=== PATIENT | female | born 1945 | race Caucasian/White ===

== ENCOUNTER 2018-05-27 13:04 | Emergency (ER) | payer MEDICARE ==
[~2018-05-27] VITALS: Ht 154.9 cm; Wt 61.0 kg
[~2018-05-27 13:04] MED LIST: ASPI-529 PO; CALC-627 PO; CYAN10006 IM; ESTR1TAB19 PO; LEVO15TA5 PO; LOSA25TA96 PO; MULT-1179 PO; SYN0.1T PO; ZOC5T PO
[2018-05-27 13:26] VITALS: BP 190/77
[2018-05-27] MEDS ORDERED: triamcinolone acetonide 40mg/ml inj IM ONE (14:05)
[2018-05-28] MEDS ORDERED: PRED10TA PO (04:54)
== END 2018-05-27 14:24 | disposition home or self-care (01) ==
LOC: ER 13:04
DX: L25.9 Unspecified contact dermatitis, unspecified cause (principal); E78.00 Pure hypercholesterolemia, unspecified; I10 Essential (primary) hypertension; Z98.890 Other specified postprocedural states; Z88.8 Allergy status to other drugs, medicaments and biological substances; Z79.82 Long term (current) use of aspirin; Z79.899 Other long term (current) drug therapy
CPT/HCPCS: 96372; 99283; J3301

== ENCOUNTER 2018-05-28 04:28 | Emergency (ER) | payer MEDICARE ==
[~2018-05-28] VITALS: Ht 154.9 cm; Wt 63.0 kg
[2018-05-28] MEDS ORDERED: PRED10TA PO (04:54)
[2018-05-28] MEDS ORDERED: methylPREDNISolone sod succ 125mg/2ml vial IV ONE (04:55)
[2018-05-28] MEDS ORDERED: diphenhydrAMINE 50 mg/ml inj IV ONE (04:55)
[2018-05-28] MEDS ORDERED: famotidine/PF 10 mg/ml inj IV ONE (04:55)
[2018-05-28 05:43] VITALS: BP 157/67
== END 2018-05-28 05:55 | disposition home or self-care (01) ==
LOC: ER 04:29
DX: T78.40XA Allergy, unspecified, initial encounter (principal); E78.00 Pure hypercholesterolemia, unspecified; I10 Essential (primary) hypertension; Z98.890 Other specified postprocedural states; Z88.8 Allergy status to other drugs, medicaments and biological substances; Z79.82 Long term (current) use of aspirin; Z79.899 Other long term (current) drug therapy; X58.XXXA Exposure to other specified factors, initial encounter
CPT/HCPCS: 96374; 96375; 99284; J1200; J2930; J3490

== ENCOUNTER 2018-10-23 22:29 | Inpatient (IN) | payer MEDICARE ==
[~2018-10-23] VITALS: Ht 154.9 cm; Wt 63.9 kg
[~2018-10-23 22:29] MED LIST changes: +PRED10TA PO
[2018-10-23 22:52] LABS: CLARITY,URINE SLIGHTLY CLOUDY (Clear); COLOR,URINE YELLOW (Yellow); GLUCOSE, URINE NEGATIVE (Neg); KETONES,URINE 15 mg/dl (Neg); LEUKOCYTE ESTERASE ,URINE MODERATE (Neg); NITRITES, URINE NEGATIVE (Neg); OCCULT BLOOD,URINE MODERATE (Neg); PROTEIN,URINE 100 mg/dl (Neg); UROBILINOGEN,URINE 0.2 E.U/dL (0.2-1.0)
[2018-10-23 22:56] LABS: UA COLLECTION TYPE VOIDED
[2018-10-23 22:57] LABS: BACTERIA,URINE FEW /HPF (Neg); RBC,URINE 0-2 /HPF (0-2); SQUAMOUS EPITHELIAL CELL,UR FEW /LPF (FEW); WBC CLUMPS,URINE FEW /HPF (NEGATIVE); WBC,URINE 50-100 /HPF (0-4)
[2018-10-23] MEDS ORDERED: normal saline 1000ML IV soln IVB ONE (23:10)
[2018-10-23] MEDS ORDERED: ondansetron/PF 4mg/2ml inj IV ONE (23:10)
[2018-10-23 23:35] LABS: BASOPHILS % (AUTO) 0 % (0-1); EOSINOPHILS % (AUTO) 0 % (0-6); HEMATOCRIT 31.7 % (35.0-45.0); HEMOGLOBIN 10.8 g/dl (12.0-16.0); LYMPHOCYTES # (AUTO) 0.7 X10'3 (1.1-4.8); LYMPHOCYTES % (AUTO) 6.6 % (21-51); MEAN CORPUSCULAR HEMOGLOBIN 31.1 PG (27.0-31.0); MEAN CORPUSCULAR HGB CONC 34.2 % (33.0-36.5); MEAN CORPUSCULAR VOLUME 91.1 FL (78-98); MEAN PLATELET VOLUME 6.7 FL (7.4-10.4); MONOCYTES # (AUTO) 1.1 X10'3 (0-0.9); MONOCYTES % (AUTO) 10.5 % (2-12); NEUTROPHILS # (AUTO) 8.5 X10'3 (1.8-7.7); NEUTROPHILS % (AUTO) 82.9 % (42-75); PLATELET COUNT 167 X10'3 (140-440); RED BLOOD COUNT 3.48 X10'6 (4.20-5.60); RED CELL DISTRIBUTION WIDTH 13.5 % (11.5-14.5); WHITE BLOOD COUNT 10.2 X10'3 (4.5-11.0)
[2018-10-23 23:55] LABS: ALANINE AMINOTRANSFERASE 51 U/L (12-78); ALBUMIN 2.6 G/DL (3.4-5.0); ALBUMIN/GLOBULIN RATIO 0.7 (1.1-1.5); ALKALINE PHOSPHATASE 119 IU/L (46-116); ANION GAP 9 (8-16); ASPARTATE AMINO TRANSFERASE 62 U/L (10-37); BILIRUBIN,TOTAL 0.8 MG/DL (0.1-1.0); BLOOD UREA NITROGEN 15 MG/DL (7-18); BUN/CREATININE RATIO 12.3 (6.6-38.0); CALCIUM 8.1 MG/DL (8.5-10.1); CHLORIDE 98 MMOL/L (99-107); CREATININE 1.22 MG/DL (0.40-0.90); GLUCOSE 109 MG/DL (70-104); SODIUM 134 MMOL/L (135-145); TOTAL CARBON DIOXIDE 27.2 MMOL/L (24-32); TOTAL PROTEIN 6.6 G/DL (6.4-8.2); eGFR 43 ML/MIN
[2018-10-23] MEDS ORDERED: HYDROcodone/acetaminophen 5mg/325mg tablet PO ONE (23:55)
[2018-10-23] MEDS ORDERED: CefTRIAXone/D5W-Rocephin 1gm 50 ML IV ONE (23:55)
[2018-10-23] MEDS ORDERED: ONDA4TAB9 SL (23:57)
[2018-10-23] MEDS ORDERED: TAM75C PO (23:57)
[2018-10-23] MEDS ORDERED: CEPH-572 PO (23:57)
[2018-10-23 23:58] LABS: POTASSIUM 2.9 MMOL/L (3.5-5.1)
[2018-10-23] MEDS ORDERED: potassium Cl 20 mEq SR tablet PO STA (23:59)
[2018-10-24] MEDS ORDERED: magnesium oxide 400mg tablet PO ONE (00:15)
[2018-10-24] MEDS ORDERED: POTA10TA36 PO (00:16)
[2018-10-24] MEDS ORDERED: MAGN250T11 PO (00:16)
[2018-10-24] MEDS ORDERED: acetaminophen 325mg tablet PO STA (00:17)
[2018-10-24 00:34] LABS: MAGNESIUM 1.2 MG/DL (1.5-2.4)
[2018-10-24] MEDS ORDERED: normal saline 1000ML IV soln IVB ONE (01:25)
[2018-10-24] MEDS ORDERED: magnesium 2GM in 50ml NS 50 ML IV ONE (01:30)
[2018-10-24] MEDS ORDERED: potassium 10mEq/100ml NS w/LIDOcaine (10mg/bag) IV ONE (01:30)
[2018-10-24] MEDS ORDERED: potassium Cl 20mEq in NS 1,000 ML IV SCH (03:07)
[2018-10-24] MEDS ORDERED: non-formulary drug (Magnesium Oxide (Magnesium) 250 MG) PO SCH (03:10)
[2018-10-24] MEDS ORDERED: mag hydrox/Alum hydrox/simeth 30ml oral suspension PO PRN (03:10)
[2018-10-24] MEDS ORDERED: ondansetron/PF 4mg/2ml inj IV PRN (03:10)
[2018-10-24] MEDS ORDERED: magnesium hydroxide 30ml (MOM) UD suspension PO PRN (03:10)
[2018-10-24 03:45] VITALS: BP 114/66
[2018-10-24 06:00] VITALS: BP 105/54
[2018-10-24 08:18] LABS: ALANINE AMINOTRANSFERASE 76 U/L (12-78); ALBUMIN 2.6 G/DL (3.4-5.0); ALBUMIN/GLOBULIN RATIO 0.6 (1.1-1.5); ALKALINE PHOSPHATASE 168 IU/L (46-116); ANION GAP 12 (8-16); ASPARTATE AMINO TRANSFERASE 108 U/L (10-37); BILIRUBIN,TOTAL 0.6 MG/DL (0.1-1.0); BLOOD UREA NITROGEN 13 MG/DL (7-18); BUN/CREATININE RATIO 10.9 (6.6-38.0); CALCIUM 7.9 MG/DL (8.5-10.1); CHLORIDE 101 MMOL/L (99-107); CREATININE 1.19 MG/DL (0.40-0.90); GLUCOSE 97 MG/DL (70-104); POTASSIUM 4.4 MMOL/L (3.5-5.1); SODIUM 136 MMOL/L (135-145); TOTAL CARBON DIOXIDE 22.9 MMOL/L (24-32); TOTAL PROTEIN 6.9 G/DL (6.4-8.2); eGFR 44 ML/MIN
[2018-10-24 08:20] LABS: BASOPHILS % (AUTO) 0.2 % (0-1); EOSINOPHILS # (AUTO) 0.1 X10'3 (0-0.9); HEMATOCRIT 33.2 % (35.0-45.0); HEMOGLOBIN 11.2 g/dl (12.0-16.0); LYMPHOCYTES # (AUTO) 1.4 X10'3 (1.1-4.8); LYMPHOCYTES % (AUTO) 11.8 % (21-51); MEAN CORPUSCULAR HEMOGLOBIN 31.4 PG (27.0-31.0); MEAN CORPUSCULAR HGB CONC 33.6 % (33.0-36.5); MEAN CORPUSCULAR VOLUME 93.3 FL (78-98); MEAN PLATELET VOLUME 7.8 FL (7.4-10.4); MONOCYTES # (AUTO) 0.8 X10'3 (0-0.9); MONOCYTES % (AUTO) 7.3 % (2-12); NEUTROPHILS # (AUTO) 9.2 X10'3 (1.8-7.7); NEUTROPHILS % (AUTO) 79.7 % (42-75); PLATELET COUNT 163 X10'3 (140-440); RED BLOOD COUNT 3.56 X10'6 (4.20-5.60); RED CELL DISTRIBUTION WIDTH 13.8 % (11.5-14.5); WHITE BLOOD COUNT 11.5 X10'3 (4.5-11.0)
[2018-10-24] MEDS: levoTHYROXINE 75mcg tablet PO SCH (09:00)
[2018-10-24] MEDS: multivitamins, therapeutics tablet PO SCH (09:00)
[2018-10-24] MEDS: losartan 50mg tablet PO SCH (09:00)
[2018-10-24] MEDS: potassium chloride 10mEq ER tablet PO SCH (09:00)
[2018-10-24] MEDS: aspirin 81mg tablet.DR PO SCH (09:00)
[2018-10-24] MEDS: heparin, porcine 5000 units/ml vial SQ SCH ×2 (09:04→20:08)
[2018-10-24] MEDS: ipratropium/albuterol 3ml nebule NEB PRN ×2 (09:50→23:36)
[2018-10-24 10:00] VITALS: BP 144/57
[2018-10-24 11:00] LABS: MAGNESIUM 1.5 MG/DL (1.5-2.4)
[2018-10-24 14:00] VITALS: BP_SYST 144; BP_SYST 152; BP_DIAS 57; BP_DIAS 59
[2018-10-24] MEDS: acetaminophen 325mg tablet PO PRN ×2 (14:54→23:11)
[2018-10-24] MEDS: estradiol 1mg tablet PO SCH (17:26)
[2018-10-24 18:00] VITALS: BP 132/60
[2018-10-24] MEDS: atorvastatin 20mg tablet PO SCH (20:08)
[2018-10-24] MEDS: lactobacillus rhamnosus 10,000 MMU CELLS/CAPSULE PO SCH (20:08)
[2018-10-24] MEDS ORDERED: CALCIUM PO SCH (21:00)
[2018-10-24] MEDS ORDERED: MAGNESIUM PO SCH (21:00)
[2018-10-24 22:08] VITALS: BP 162/66
[2018-10-24] MEDS: CefTRIAXone/D5W-Rocephin 1gm 50 ML IV SCH (22:22)
[2018-10-24] MEDS: normal saline 1000ml 1,000 ML IV SCH (22:24)
[2018-10-25] VITALS (8 sets, daily range): BP systolic 109–148; BP diastolic 46–77
[2018-10-25] MEDS ORDERED: diltiazem 30mg tablet PO ONE (00:20)
[2018-10-25 06:03] LABS: BASOPHILS % (AUTO) 0.3 % (0-1); EOSINOPHILS % (AUTO) 0 % (0-6); HEMATOCRIT 27.4 % (35.0-45.0); HEMOGLOBIN 9.1 g/dl (12.0-16.0); LYMPHOCYTES % (AUTO) 12.9 % (21-51); MEAN CORPUSCULAR HGB CONC 33.2 % (33.0-36.5); MEAN CORPUSCULAR VOLUME 93.7 FL (78-98); MEAN PLATELET VOLUME 8.1 FL (7.4-10.4); MONOCYTES # (AUTO) 0.8 X10'3 (0-0.9); NEUTROPHILS # (AUTO) 5.9 X10'3 (1.8-7.7); NEUTROPHILS % (AUTO) 76.8 % (42-75); PLATELET COUNT 126 X10'3 (140-440); RED BLOOD COUNT 2.93 X10'6 (4.20-5.60); RED CELL DISTRIBUTION WIDTH 13.4 % (11.5-14.5); WHITE BLOOD COUNT 7.7 X10'3 (4.5-11.0)
[2018-10-25 06:44] LABS: ALANINE AMINOTRANSFERASE 139 U/L (12-78); ALBUMIN/GLOBULIN RATIO 0.5 (1.1-1.5); ALKALINE PHOSPHATASE 159 IU/L (46-116); ANION GAP 13 (8-16); ASPARTATE AMINO TRANSFERASE 230 U/L (10-37); BILIRUBIN,TOTAL 0.4 MG/DL (0.1-1.0); BLOOD UREA NITROGEN 11 MG/DL (7-18); BUN/CREATININE RATIO 10.3 (6.6-38.0); CALCIUM 7.5 MG/DL (8.5-10.1); CHLORIDE 103 MMOL/L (99-107); CREATININE 1.07 MG/DL (0.40-0.90); GLUCOSE 118 MG/DL (70-104); POTASSIUM 3.4 MMOL/L (3.5-5.1); SODIUM 138 MMOL/L (135-145); TOTAL CARBON DIOXIDE 21.6 MMOL/L (24-32); TOTAL PROTEIN 5.9 G/DL (6.4-8.2); eGFR 50 ML/MIN
[2018-10-25] MEDS: levoTHYROXINE 75mcg tablet PO SCH (07:20)
[2018-10-25] MEDS ORDERED: metoprolol tartrate 12.5mg (1/2 tablet) PO PRN (07:50)
[2018-10-25] MEDS: potassium chloride 10mEq ER tablet PO SCH (08:02)
[2018-10-25] MEDS: multivitamins, therapeutics tablet PO SCH (08:02)
[2018-10-25] MEDS: losartan 50mg tablet PO SCH (08:03)
[2018-10-25] MEDS: aspirin 81mg tablet.DR PO SCH (08:04)
[2018-10-25] MEDS: lactobacillus rhamnosus 10,000 MMU CELLS/CAPSULE PO SCH ×2 (08:04→19:52)
[2018-10-25] MEDS: diltiazem 30mg tablet PO SCH ×3 (08:04→19:51)
[2018-10-25] MEDS ORDERED: magnesium Cl slow-release 64mg tablet PO PRN (08:05)
[2018-10-25] MEDS ORDERED: potassium Cl 40MEQ/NS 500ml 500 ML IV PRN ×2 (08:05)
[2018-10-25] MEDS ORDERED: magnesium 4gm in 100ml NS 100 ML IV PRN (08:05)
[2018-10-25] MEDS ORDERED: potassium Cl 20 mEq SR tablet PO PRN (08:05)
[2018-10-25] MEDS: heparin, porcine 5000 units/ml vial SQ SCH (08:08)
[2018-10-25 08:27] LABS: MAGNESIUM 1.6 MG/DL (1.5-2.4)
[2018-10-25] MEDS: normal saline 1000ml 1,000 ML IV SCH (09:04)
[2018-10-25] MEDS: potassium Cl 20 mEq SR tablet PO PRN ×3 (09:05→19:53)
[2018-10-25] MEDS: ipratropium/albuterol 3ml nebule NEB PRN (13:59)
[2018-10-25] MEDS: acetaminophen 325mg tablet PO PRN ×2 (14:31→21:50)
[2018-10-25] MEDS ORDERED: metoprolol tartrate 25mg tablet PO ONE (16:25)
[2018-10-25] MEDS: metoprolol tartrate 12.5mg (1/2 tablet) PO SCH (19:53)
[2018-10-25] MEDS: enoxaparin 60mg/0.6ml syringe SUBCUT SCH (19:54)
[2018-10-25] MEDS: atorvastatin 20mg tablet PO SCH (21:44)
[2018-10-25] MEDS: CefTRIAXone/D5W-Rocephin 1gm 50 ML IV SCH (21:45)
[2018-10-26] MEDS: diltiazem 30mg tablet PO SCH ×5 (02:00→19:57)
[2018-10-26 03:00] VITALS: BP 136/69
[2018-10-26 06:00] VITALS: BP 152/74
[2018-10-26 06:13] LABS: BASOPHILS % (AUTO) 0.5 % (0-1); EOSINOPHILS # (AUTO) 0.1 X10'3 (0-0.9); EOSINOPHILS % (AUTO) 0.8 % (0-6); HEMATOCRIT 28.2 % (35.0-45.0); HEMOGLOBIN 9.4 g/dl (12.0-16.0); LYMPHOCYTES # (AUTO) 1.4 X10'3 (1.1-4.8); LYMPHOCYTES % (AUTO) 19.8 % (21-51); MEAN CORPUSCULAR HEMOGLOBIN 31.3 PG (27.0-31.0); MEAN CORPUSCULAR HGB CONC 33.5 % (33.0-36.5); MEAN CORPUSCULAR VOLUME 93.4 FL (78-98); MEAN PLATELET VOLUME 8.2 FL (7.4-10.4); MONOCYTES # (AUTO) 0.7 X10'3 (0-0.9); NEUTROPHILS # (AUTO) 4.7 X10'3 (1.8-7.7); NEUTROPHILS % (AUTO) 68.9 % (42-75); PLATELET COUNT 143 X10'3 (140-440); RED BLOOD COUNT 3.02 X10'6 (4.20-5.60); RED CELL DISTRIBUTION WIDTH 14.2 % (11.5-14.5); WHITE BLOOD COUNT 6.8 X10'3 (4.5-11.0)
[2018-10-26 06:42] LABS: ALANINE AMINOTRANSFERASE 182 U/L (12-78); ALBUMIN/GLOBULIN RATIO 0.5 (1.1-1.5); ALKALINE PHOSPHATASE 225 IU/L (46-116); ANION GAP 13 (8-16); ASPARTATE AMINO TRANSFERASE 264 U/L (10-37); BILIRUBIN,TOTAL 0.6 MG/DL (0.1-1.0); BLOOD UREA NITROGEN 10 MG/DL (7-18); BUN/CREATININE RATIO 10.8 (6.6-38.0); CALCIUM 7.6 MG/DL (8.5-10.1); CHLORIDE 106 MMOL/L (99-107); CREATININE 0.93 MG/DL (0.40-0.90); GLUCOSE 95 MG/DL (70-104); MAGNESIUM 1.7 MG/DL (1.5-2.4); POTASSIUM 3.9 MMOL/L (3.5-5.1); SODIUM 140 MMOL/L (135-145); TOTAL CARBON DIOXIDE 21.3 MMOL/L (24-32); eGFR 59 ML/MIN
[2018-10-26] MEDS: ipratropium/albuterol 3ml nebule NEB PRN (07:37)
[2018-10-26] MEDS: metoprolol tartrate 1mg/ml inj IV PRN ×2 (08:10→09:07)
[2018-10-26] MEDS: aspirin 81mg tablet.DR PO SCH (08:18)
[2018-10-26] MEDS: lactobacillus rhamnosus 10,000 MMU CELLS/CAPSULE PO SCH ×2 (08:18→19:57)
[2018-10-26] MEDS: metoprolol tartrate 12.5mg (1/2 tablet) PO SCH ×3 (08:18→19:57)
[2018-10-26] MEDS: multivitamins, therapeutics tablet PO SCH (08:19)
[2018-10-26] MEDS: estradiol 1mg tablet PO SCH (08:20)
[2018-10-26] MEDS: enoxaparin 60mg/0.6ml syringe SUBCUT SCH ×2 (08:20→19:58)
[2018-10-26] MEDS: potassium chloride 10mEq ER tablet PO SCH (08:22)
[2018-10-26] MEDS: levoTHYROXINE 75mcg tablet PO SCH (09:41)
[2018-10-26 11:00] VITALS: BP 133/57
[2018-10-26 15:00] VITALS: BP 149/63
[2018-10-26 19:00] VITALS: BP 157/65
[2018-10-26] MEDS: atorvastatin 20mg tablet PO SCH (21:07)
[2018-10-26] MEDS: CefTRIAXone/D5W-Rocephin 1gm 50 ML IV SCH (21:08)
[2018-10-26 23:00] VITALS: BP 132/59
[2018-10-27] MEDS: diltiazem 30mg tablet PO SCH ×2 (01:05→08:15)
[2018-10-27 03:00] VITALS: BP 136/67
[2018-10-27 05:53] LABS: BASOPHILS % (AUTO) 0.3 % (0-1); EOSINOPHILS # (AUTO) 0.1 X10'3 (0-0.9); EOSINOPHILS % (AUTO) 1.5 % (0-6); HEMATOCRIT 27.3 % (35.0-45.0); HEMOGLOBIN 9.1 g/dl (12.0-16.0); LYMPHOCYTES # (AUTO) 1.7 X10'3 (1.1-4.8); MEAN CORPUSCULAR HGB CONC 33.5 % (33.0-36.5); MEAN CORPUSCULAR VOLUME 92.6 FL (78-98); MEAN PLATELET VOLUME 8.2 FL (7.4-10.4); MONOCYTES # (AUTO) 0.6 X10'3 (0-0.9); MONOCYTES % (AUTO) 7.9 % (2-12); NEUTROPHILS # (AUTO) 5.7 X10'3 (1.8-7.7); NEUTROPHILS % (AUTO) 69.3 % (42-75); PLATELET COUNT 172 X10'3 (140-440); RED BLOOD COUNT 2.95 X10'6 (4.20-5.60); RED CELL DISTRIBUTION WIDTH 13.9 % (11.5-14.5); WHITE BLOOD COUNT 8.2 X10'3 (4.5-11.0)
[2018-10-27 06:00] VITALS: BP 145/79
[2018-10-27 06:11] LABS: ALANINE AMINOTRANSFERASE 138 U/L (12-78); ALBUMIN/GLOBULIN RATIO 0.5 (1.1-1.5); ALKALINE PHOSPHATASE 280 IU/L (46-116); ANION GAP 13 (8-16); ASPARTATE AMINO TRANSFERASE 139 U/L (10-37); BILIRUBIN,TOTAL 0.5 MG/DL (0.1-1.0); BLOOD UREA NITROGEN 10 MG/DL (7-18); BUN/CREATININE RATIO 10.9 (6.6-38.0); CALCIUM 8.1 MG/DL (8.5-10.1); CHLORIDE 105 MMOL/L (99-107); CREATININE 0.92 MG/DL (0.40-0.90); GLUCOSE 81 MG/DL (70-104); MAGNESIUM 1.7 MG/DL (1.5-2.4); POTASSIUM 3.5 MMOL/L (3.5-5.1); SODIUM 138 MMOL/L (135-145); TOTAL CARBON DIOXIDE 19.7 MMOL/L (24-32); TOTAL PROTEIN 6.1 G/DL (6.4-8.2); eGFR 60 ML/MIN
[2018-10-27] MEDS: metoprolol tartrate 12.5mg (1/2 tablet) PO SCH (08:15)
[2018-10-27] MEDS: lactobacillus rhamnosus 10,000 MMU CELLS/CAPSULE PO SCH ×2 (08:18→20:10)
[2018-10-27] MEDS: levoTHYROXINE 75mcg tablet PO SCH (08:18)
[2018-10-27] MEDS: aspirin 81mg tablet.DR PO SCH (08:19)
[2018-10-27] MEDS: multivitamins, therapeutics tablet PO SCH (08:19)
[2018-10-27] MEDS: enoxaparin 60mg/0.6ml syringe SUBCUT SCH (08:20)
[2018-10-27] MEDS: potassium chloride 10mEq ER tablet PO SCH (08:21)
[2018-10-27 11:00] VITALS: BP 149/67
[2018-10-27] MEDS ORDERED: diltiazem 30mg tablet PO ONE ×4 (12:30→20:00)
[2018-10-27 15:00] VITALS: BP 156/78
[2018-10-27 19:00] VITALS: BP 147/97
[2018-10-27] MEDS: metoprolol tartrate 25mg tablet PO SCH (20:10)
[2018-10-27] MEDS: apixaban 5mg tablet PO SCH (20:10)
[2018-10-27] MEDS: CefTRIAXone/D5W-Rocephin 1gm 50 ML IV SCH (22:36)
[2018-10-27 23:00] VITALS: BP 123/85
[2018-10-28 03:00] VITALS: BP 128/84
[2018-10-28 06:00] VITALS: BP 145/73
[2018-10-28 06:06] LABS: BASOPHILS % (AUTO) 0.4 % (0-1); EOSINOPHILS # (AUTO) 0.2 X10'3 (0-0.9); EOSINOPHILS % (AUTO) 2.4 % (0-6); HEMATOCRIT 29.8 % (35.0-45.0); LYMPHOCYTES # (AUTO) 1.7 X10'3 (1.1-4.8); LYMPHOCYTES % (AUTO) 18.9 % (21-51); MEAN CORPUSCULAR HEMOGLOBIN 31.2 PG (27.0-31.0); MEAN CORPUSCULAR HGB CONC 33.7 % (33.0-36.5); MEAN CORPUSCULAR VOLUME 92.6 FL (78-98); MONOCYTES # (AUTO) 0.8 X10'3 (0-0.9); MONOCYTES % (AUTO) 9.1 % (2-12); NEUTROPHILS # (AUTO) 6.2 X10'3 (1.8-7.7); NEUTROPHILS % (AUTO) 69.2 % (42-75); PLATELET COUNT 232 X10'3 (140-440); RED BLOOD COUNT 3.22 X10'6 (4.20-5.60); RED CELL DISTRIBUTION WIDTH 13.9 % (11.5-14.5)
[2018-10-28] MEDS: aspirin 81mg tablet.DR PO SCH (07:51)
[2018-10-28] MEDS: lactobacillus rhamnosus 10,000 MMU CELLS/CAPSULE PO SCH (07:51)
[2018-10-28] MEDS: potassium chloride 10mEq ER tablet PO SCH (07:51)
[2018-10-28 07:52] VITALS: BP_SYST 154
[2018-10-28] MEDS: metoprolol tartrate 25mg tablet PO SCH (07:52)
[2018-10-28] MEDS: apixaban 5mg tablet PO SCH (07:53)
[2018-10-28] MEDS: multivitamins, therapeutics tablet PO SCH (07:53)
[2018-10-28] MEDS: levoTHYROXINE 75mcg tablet PO SCH (07:53)
[2018-10-28] MEDS: estradiol 1mg tablet PO SCH (07:54)
[2018-10-28] MEDS ORDERED: diltiazem CD 120mg capsule (once-daily) PO SCH (08:00)
[2018-10-28] MEDS ORDERED: APIX5TAB3 PO (08:58)
[2018-10-28] MEDS ORDERED: METO25TA6 PO (08:58)
[2018-10-28 09:03] LABS: GLUCOSE 85 MG/DL (70-104); SODIUM 141 MMOL/L (135-145)
[2018-10-28 09:04] LABS: ALANINE AMINOTRANSFERASE 95 U/L (12-78); ALBUMIN 1.9 G/DL (3.4-5.0); ALBUMIN/GLOBULIN RATIO 0.5 (1.1-1.5); ALKALINE PHOSPHATASE 255 IU/L (46-116); ANION GAP 14 (8-16); ASPARTATE AMINO TRANSFERASE 78 U/L (10-37); BILIRUBIN,TOTAL 0.4 MG/DL (0.1-1.0); BLOOD UREA NITROGEN 11 MG/DL (7-18); CALCIUM 8.6 MG/DL (8.5-10.1); CHLORIDE 106 MMOL/L (99-107); MAGNESIUM 1.5 MG/DL (1.5-2.4); POTASSIUM 3.8 MMOL/L (3.5-5.1); TOTAL CARBON DIOXIDE 21.4 MMOL/L (24-32); eGFR 54 ML/MIN
== END 2018-10-28 11:35 | disposition home or self-care (01) | DRG 871 ==
LOC: ER 22:30 → ED HOLD 10-24 03:07 → ORTHO 4S 10-24 03:45 → PCU 3S 10-25 15:44
PROVIDERS: ADMIT Internal Medicine; ATTEND Internal Medicine
DX: A41.9 Sepsis, unspecified organism (principal); E43 Unspecified severe protein-calorie malnutrition; N17.9 Acute kidney failure, unspecified; N39.0 Urinary tract infection, site not specified; E87.6 Hypokalemia; E83.42 Hypomagnesemia; R31.9 Hematuria, unspecified; D64.9 Anemia, unspecified; E78.00 Pure hypercholesterolemia, unspecified; E78.5 Hyperlipidemia, unspecified; I10 Essential (primary) hypertension; I48.0 Paroxysmal atrial fibrillation; Z88.8 Allergy status to other drugs, medicaments and biological substances; Z91.013 Allergy to seafood; Z79.899 Other long term (current) drug therapy; Z79.82 Long term (current) use of aspirin; Z82.49 Family history of ischemic heart disease and other diseases of the circulatory system; Z84.89 Family history of other specified conditions; Z68.26 Body mass index [BMI] 26.0-26.9, adult
CPT/HCPCS: 36415; 74176; 80053; 81001; 83605; 83735; 84443; 85025; 87040; 87070; 87088; 87502; 87503; 93005; 93306; 94640; 94760; 96361; 96365; 96375; 99285; G0378; J0696; J1644; J1650; J2405; J3490; J7030

== ENCOUNTER 2019-04-13 20:04 | Emergency (ER) | payer MEDICARE, OTHER ==
[~2019-04-13] VITALS: Ht 154.9 cm; Wt 58.6 kg
[~2019-04-13 20:04] MED LIST changes: +APIX5TAB3 PO; +HYDR-3965 PO; +MAGN250T11 PO; +METO25TA6 PO; -PRED10TA PO; +SIMV5TAB58 PO; -ZOC5T PO
[2019-04-13 20:31] VITALS: BP 126/56
[2019-04-13] MEDS ORDERED: OXYC-145 PO (22:28)
[2019-04-13] MEDS: oxyCODONE/APAP 10/325mg tablet PO ONE (22:34)
[2019-04-13] MEDS: ketorolac tromethamine 15mg/ml inj. IM ONE (22:35)
== END 2019-04-13 22:41 | disposition home or self-care (01) ==
LOC: ER 20:04
DX: M75.22 Bicipital tendinitis, left shoulder (principal); E78.00 Pure hypercholesterolemia, unspecified; I10 Essential (primary) hypertension; M19.90 Unspecified osteoarthritis, unspecified site; Z98.890 Other specified postprocedural states; Z88.8 Allergy status to other drugs, medicaments and biological substances; Z79.82 Long term (current) use of aspirin; Z79.899 Other long term (current) drug therapy; Z79.84 Long term (current) use of oral hypoglycemic drugs
CPT/HCPCS: 73030; 96372; 99283; J1885

== ENCOUNTER 2019-08-23 08:15 | Emergency (ER) | payer MEDICARE, OTHER ==
[~2019-08-23] VITALS: Ht 157.5 cm; Wt 61.4 kg
[~2019-08-23 08:15] MED LIST changes: -HYDR-3965 PO; +OXYC-145 PO
[2019-08-23 08:26] VITALS: BP 153/58
[2019-08-23] MEDS ORDERED: ketorolac trometh inj. 60 MG/2 ML VIAL IM ONE (09:05)
[2019-08-23] MEDS ORDERED: cyclobenzaprine 10mg tablet PO ONE (09:05)
[2019-08-23] MEDS ORDERED: CYCL-1 PO (09:11)
== END 2019-08-23 10:04 | disposition home or self-care (01) ==
LOC: ER 08:16
DX: S39.012A Strain of muscle, fascia and tendon of lower back, initial encounter (principal); M54.41 Lumbago with sciatica, right side; M62.830 Muscle spasm of back; E78.00 Pure hypercholesterolemia, unspecified; I10 Essential (primary) hypertension; M19.90 Unspecified osteoarthritis, unspecified site; Z98.890 Other specified postprocedural states; Z88.8 Allergy status to other drugs, medicaments and biological substances; Z79.82 Long term (current) use of aspirin; Z79.899 Other long term (current) drug therapy; X50.1XXA Overexertion from prolonged static or awkward postures, initial encounter; Y93.89 Activity, other specified; Y92.89 Other specified places as the place of occurrence of the external cause; Y99.9 Unspecified external cause status
CPT/HCPCS: 72100; 96372; 99283; J1885

== ENCOUNTER 2023-09-13 23:45 | Emergency (ER) | payer MEDICARE, OTHER ==
[~2023-09-13] VITALS: Ht 154.9 cm; Wt 65.9 kg
[~2023-09-13 23:45] MED LIST changes: -CALC-627 PO; +CHOL400T8 PO; +DOCU-148 PO; +ESTR0.5T28 PO; -ESTR1TAB19 PO; +LEVO150T8 PO; -LOSA25TA96 PO; +LOSA50TA64 PO; -MAGN250T11 PO; +METO-395 PO; -METO25TA6 PO; -OXYC-145 PO; +SIMV-45 PO; -SIMV5TAB58 PO; -SYN0.1T PO; +TICA90TA PO
[2023-09-14 00:22] LABS: BILIRUBIN,URINE NEGATIVE (Neg); CLARITY,URINE CLOUDY (Clear); COLOR,URINE YELLOW (Yellow); GLUCOSE, URINE NEGATIVE (Neg); KETONES,URINE NEGATIVE (Neg); LEUKOCYTE ESTERASE ,URINE LARGE (Neg); NITRITES, URINE NEGATIVE (Neg); OCCULT BLOOD,URINE MODERATE (Neg); PROTEIN,URINE 30 mg/dl (Neg); UROBILINOGEN,URINE 0.2 E.U/dL (0.2-1.0)
[2023-09-14 00:30] LABS: UA COLLECTION TYPE CLN CATCH MIDSTREAM
[2023-09-14 00:31] LABS: BACTERIA,URINE 2+ /HPF (Neg); RBC,URINE 20-50 /HPF (0-2); SQUAMOUS EPITHELIAL CELL,UR FEW /LPF (FEW); TRANSITIONAL EPI CELLS,URINE FEW /HPF; WBC,URINE TNTC /HPF (0-4)
[2023-09-14 00:32] LABS: MUCUS STRANDS FEW /LPF (Neg); WBC CLUMPS,URINE MODERATE /HPF (NEGATIVE)
[2023-09-14] MEDS ORDERED: pantoprazole 40 MG vial IV ONE (01:30)
[2023-09-14] MEDS ORDERED: diltiazem 5mg/ml 5ml inj. IV ONE ×2 (01:30→04:55)
[2023-09-14] MEDS ORDERED: morphine 4 MG/ML inj SYRINge IV ONE (01:30)
[2023-09-14] MEDS ORDERED: ondansetron/PF 4mg/2ml inj IV ONE (01:30)
[2023-09-14] MEDS ORDERED: normal saline 1000ML IV soln IVB ONE (01:30)
[2023-09-14] MEDS ORDERED: pantoprazole 40MG/NS 100ML BAG 100 ML IV ONE (01:40)
[2023-09-14] MEDS ORDERED: acetaminophen 325mg tablet PO STA (01:48)
[2023-09-14] MEDS ORDERED: CefTRIAXone 2gm/D5W 50ml BAG 50 ML IV ONE (01:50)
[2023-09-14] MEDS ORDERED: iohexol 300mg/ml 100ml inj. ONE (01:55)
[2023-09-14 02:12] LABS: BASOPHILS # (AUTO) 0.1 X10'3 (0-0.2); BASOPHILS % (AUTO) 0.8 % (0-1); EOSINOPHILS # (AUTO) 0.6 X10'3 (0-0.9); EOSINOPHILS % (AUTO) 5.6 % (0-6); HEMATOCRIT 39.5 % (35.0-45.0); LYMPHOCYTES # (AUTO) 2.5 X10'3 (1.1-4.8); LYMPHOCYTES % (AUTO) 22.5 % (21-51); MEAN CORPUSCULAR HEMOGLOBIN 29.5 PG (27.0-31.0); MEAN CORPUSCULAR HGB CONC 32.8 g/dL (33.0-36.5); MEAN CORPUSCULAR VOLUME 89.8 FL (78-98); MEAN PLATELET VOLUME 7.2 FL (7.4-10.4); MONOCYTES # (AUTO) 1.1 X10'3 (0-0.9); MONOCYTES % (AUTO) 9.6 % (2-12); NEUTROPHILS # (AUTO) 6.9 X10'3 (1.8-7.7); NEUTROPHILS % (AUTO) 61.5 % (42-75); PLATELET COUNT 276 X10'3 (140-440); RED BLOOD COUNT 4.39 X10'6 (4.20-5.60); WHITE BLOOD COUNT 11.3 X10'3 (4.5-11.0)
[2023-09-14 02:23] LABS: APTT 30 SECONDS (22-32); PROTHROMBIN TIME 10.5 SECONDS (9.0-12.0)
[2023-09-14 02:25] LABS: ALANINE AMINOTRANSFERASE 25 U/L (12-78); ALBUMIN 3.7 G/DL (3.4-5.0); ALBUMIN/GLOBULIN RATIO 0.9 (1.1-1.5); ALKALINE PHOSPHATASE 103 IU/L (46-116); ANION GAP 11 (8-16); ASPARTATE AMINO TRANSFERASE 21 U/L (10-37); BILIRUBIN,TOTAL 1.1 MG/DL (0.1-1.0); BLOOD UREA NITROGEN 21 MG/DL (7-18); BUN/CREATININE RATIO 17.8 (10.0-20.0); CALCIUM 9.8 MG/DL (8.5-10.1); CHLORIDE 104 MMOL/L (99-107); CREATININE 1.18 MG/DL (0.40-0.90); GLUCOSE 114 MG/DL (70-104); POTASSIUM 4.1 MMOL/L (3.5-5.1); SODIUM 141 MMOL/L (135-145); TOTAL CARBON DIOXIDE 26.5 MMOL/L (24-32); TOTAL PROTEIN 7.8 G/DL (6.4-8.2); eCRCL 29 ML/MIN; eGFR 44 ML/MIN
[2023-09-14 02:28] LABS: MAGNESIUM 1.9 MG/DL (1.5-2.4)
[2023-09-14 02:29] LABS: LIPASE 35 U/L (16-77)
[2023-09-14] MEDS ORDERED: nitroGLYCERIN 0.4mg SUBLingual tab SL PRN (04:55)
[2023-09-14] MEDS ORDERED: aspirin 81mg tab.chew PO ONE (04:55)
[2023-09-14] MEDS ORDERED: PHEN-824 PO (05:07)
[2023-09-14] MEDS ORDERED: CEPH-585 PO (05:07)
[2023-09-14 05:37] VITALS: BP 134/82; PULSE 92; RESP 19; TEMP 97.7; O2SAT 98
== END 2023-09-14 05:42 | disposition left against medical advice (07) ==
LOC: ER 23:46
DX: N39.0 Urinary tract infection, site not specified (principal); I11.0 Hypertensive heart disease with heart failure
CPT/HCPCS: 36415; 71045; 74177; 80053; 81001; 83605; 83690; 83735; 84145; 84484; 85025; 85610; 85730; 87040; 87077; 87088; 87186; 93005; 96365; 96367; 96375; 96376; 99291; C9113; J0696; J3490; J7030; Q9967; 99285

== ENCOUNTER 2023-11-21 16:52 | Inpatient (IN) | payer MEDICARE, OTHER ==
[~2023-11-21] VITALS: Ht 154.9 cm; Wt 65.0 kg
[~2023-11-21 16:52] MED LIST changes: +CEPH-585 PO; +PHEN-824 PO
[2023-11-21] MEDS ORDERED: iohexol 350MG/ML 100ml bottle IV ONE (17:02)
[2023-11-21 17:30] LABS: HEMATOCRIT 33.4 % (35.0-45.0)
[2023-11-21 17:31] LABS: BASOPHILS # (AUTO) 0.1 X10'3 (0-0.2); BASOPHILS % (AUTO) 0.7 % (0-1); EOSINOPHILS # (AUTO) 0.2 X10'3 (0-0.9); EOSINOPHILS % (AUTO) 2.3 % (0-6); HEMOGLOBIN 11.2 g/dl (12.0-16.0); LYMPHOCYTES # (AUTO) 1.3 X10'3 (1.1-4.8); LYMPHOCYTES % (AUTO) 16.4 % (21-51); MEAN CORPUSCULAR HEMOGLOBIN 29.6 PG (27.0-31.0); MEAN CORPUSCULAR HGB CONC 33.4 g/dL (33.0-36.5); MEAN CORPUSCULAR VOLUME 88.6 FL (78-98); MEAN PLATELET VOLUME 6.7 FL (7.4-10.4); MONOCYTES # (AUTO) 0.9 X10'3 (0-0.9); MONOCYTES % (AUTO) 11.1 % (2-12); NEUTROPHILS # (AUTO) 5.6 X10'3 (1.8-7.7); NEUTROPHILS % (AUTO) 69.5 % (42-75); PLATELET COUNT 292 X10'3 (140-440); RED BLOOD COUNT 3.77 X10'6 (4.20-5.60); RED CELL DISTRIBUTION WIDTH 15.7 % (11.5-14.5)
[2023-11-21] MEDS ORDERED: normal saline 1000ml 1,000 ML IV ONE (17:35)
[2023-11-21 17:36] LABS: APTT 30 SECONDS (22-32)
[2023-11-21 17:38] LABS: ALANINE AMINOTRANSFERASE 22 U/L (12-78); ALBUMIN 3.1 G/DL (3.4-5.0); ALBUMIN/GLOBULIN RATIO 0.9 (1.1-1.5); ALKALINE PHOSPHATASE 97 IU/L (46-116); ANION GAP 10 (8-16); ASPARTATE AMINO TRANSFERASE 16 U/L (10-37); BILIRUBIN,TOTAL 0.8 MG/DL (0.1-1.0); BLOOD UREA NITROGEN 23 MG/DL (7-18); CALCIUM 8.8 MG/DL (8.5-10.1); CHLORIDE 100 MMOL/L (99-107); CREATININE 1.15 MG/DL (0.40-0.90); GLUCOSE 104 MG/DL (70-104); POTASSIUM 3.9 MMOL/L (3.5-5.1); SODIUM 134 MMOL/L (135-145); TOTAL CARBON DIOXIDE 24.2 MMOL/L (24-32); TOTAL PROTEIN 6.6 G/DL (6.4-8.2); eCRCL 30 ML/MIN; eGFR 46 ML/MIN
[2023-11-21] MEDS ORDERED: amiodarone 150mg/dext, iso-os 100 ML IV ONE (17:45)
[2023-11-21] MEDS ORDERED: aspirin 81mg, enteric-coated 1 TAB TABLET.DR PO ONE (17:50)
[2023-11-21] MEDS: amiodarone/D5 360MG/200ML BAG 200 ML IV SCH (18:16)
[2023-11-21] MEDS ORDERED: PERFLUTREN PROTEIN-A MICROSPHR (Optison) 0.22 MG/ML 3ML VIAL IV ONE (19:35)
[2023-11-21] MEDS ORDERED: magnesium 4gm in 100ml NS 100 ML IV PRN (19:35)
[2023-11-21] MEDS ORDERED: potassium Cl 20 mEq SR tablet PO PRN ×2 (19:35)
[2023-11-21] MEDS ORDERED: ondansetron/PF 4mg/2ml inj IV PRN (19:35)
[2023-11-21] MEDS ORDERED: magnesium hydroxide 30ml (MOM) UD suspension PO PRN (19:35)
[2023-11-21] MEDS ORDERED: magnesium 2GM in 50ml NS 50 ML IV PRN (19:35)
[2023-11-21] MEDS ORDERED: acetaminophen 325mg tablet PO PRN (19:35)
[2023-11-21] MEDS ORDERED: magnesium Cl slow-release 64mg tablet PO PRN (19:35)
[2023-11-21] MEDS ORDERED: mag hydrox/Alum hydrox/simeth 30ml oral suspension PO PRN (19:35)
[2023-11-21] MEDS ORDERED: potassium Cl 40MEQ/1/2NS 520ml 520 ML IV PRN (19:35)
[2023-11-21] MEDS ORDERED: metoprolol tartrate 1mg/ml inj IV ONE (19:35)
[2023-11-21] MEDS: normal saline 1000ml 1,000 ML IV SCH (19:35)
[2023-11-21] MEDS: docusate sod 100mg capsule PO SCH (20:00)
[2023-11-21] MEDS: K and/or MAG REPLACEMENT MC SCH (20:00)
[2023-11-21] MEDS: apixaban 5mg tablet PO SCH (20:45)
[2023-11-21] MEDS: LORazepam 1 MG tablet PO PRN (20:46)
[2023-11-21] MEDS ORDERED: cyclobenzaprine 10mg tablet PO ONE (21:40)
[2023-11-21 22:15] VITALS: BP 164/95; PULSE 114; RESP 16; TEMP 97.9; O2SAT 99
[2023-11-21 22:30] VITALS: BP 176/86; PULSE 123
[2023-11-21 22:45] VITALS: BP 145/95; PULSE 125
[2023-11-21] MEDS: oxyCODONE/APAP 10/325mg tablet PO PRN (22:49)
[2023-11-21 22:50] VITALS: RESP 16; O2SAT 99
[2023-11-21 23:00] VITALS: BP 144/87; PULSE 124
[2023-11-21 23:30] VITALS: BP 146/78; PULSE 124
[2023-11-22] VITALS (12 sets, daily range): BP systolic 105–170; BP diastolic 59–85; PULSE 51–126; RESP 12–18; TEMP 97–98.4; O2SAT 96–99
[2023-11-22] MEDS: amiodarone/D5 360MG/200ML BAG 200 ML IV SCH (00:10)
[2023-11-22 01:54] LABS: MAGNESIUM 1.7 MG/DL (1.5-2.4)
[2023-11-22] MEDS: apixaban 5mg tablet PO SCH (07:17)
[2023-11-22 07:43] LABS: BASOPHILS # (AUTO) 0.1 X10'3 (0-0.2); EOSINOPHILS # (AUTO) 0.2 X10'3 (0-0.9); HEMATOCRIT 37.5 % (35.0-45.0); HEMOGLOBIN 12.1 g/dl (12.0-16.0); LYMPHOCYTES # (AUTO) 2.5 X10'3 (1.1-4.8); LYMPHOCYTES % (AUTO) 31.9 % (21-51); MEAN CORPUSCULAR HEMOGLOBIN 29.5 PG (27.0-31.0); MEAN CORPUSCULAR HGB CONC 32.4 g/dL (33.0-36.5); MEAN CORPUSCULAR VOLUME 91.1 FL (78-98); MEAN PLATELET VOLUME 6.8 FL (7.4-10.4); MONOCYTES % (AUTO) 13.2 % (2-12); NEUTROPHILS # (AUTO) 4.1 X10'3 (1.8-7.7); NEUTROPHILS % (AUTO) 51.9 % (42-75); PLATELET COUNT 290 X10'3 (140-440); RED BLOOD COUNT 4.12 X10'6 (4.20-5.60); RED CELL DISTRIBUTION WIDTH 15.9 % (11.5-14.5); WHITE BLOOD COUNT 7.9 X10'3 (4.5-11.0)
[2023-11-22] MEDS ORDERED: aspirin 81mg, enteric-coated 1 TAB TABLET.DR PO SCH (08:00)
[2023-11-22] MEDS: K and/or MAG REPLACEMENT MC SCH ×2 (08:00→19:20)
[2023-11-22] MEDS ORDERED: aspirin 81mg tab.chew PO ONE (08:55)
[2023-11-22] MEDS: docusate sod 100mg capsule PO SCH ×2 (09:55→20:00)
[2023-11-22] MEDS: pantoprazole 40mg Tablet.DR PO SCH (09:55)
[2023-11-22] MEDS: clopidogrel 75mg tablet PO SCH (10:00)
[2023-11-22 11:09] LABS: ALANINE AMINOTRANSFERASE 23 U/L (12-78); ALBUMIN 3.1 G/DL (3.4-5.0); ALBUMIN/GLOBULIN RATIO 0.8 (1.1-1.5); ALKALINE PHOSPHATASE 100 IU/L (46-116); ANION GAP 9 (8-16); ASPARTATE AMINO TRANSFERASE 19 U/L (10-37); BILIRUBIN,TOTAL 0.8 MG/DL (0.1-1.0); BLOOD UREA NITROGEN 16 MG/DL (7-18); BUN/CREATININE RATIO 13.6 (10.0-20.0); CALCIUM 8.8 MG/DL (8.5-10.1); CHLORIDE 102 MMOL/L (99-107); CHOLESTEROL 166 MG/DL (0-200); CREATININE 1.18 MG/DL (0.40-0.90); GLUCOSE 104 MG/DL (70-104); HDL CHOLESTEROL 55 MG/DL (35-60); LDL CHOLESTEROL 83 MG/DL (50-100); POTASSIUM 3.7 MMOL/L (3.5-5.1); SODIUM 136 MMOL/L (135-145); THYROID STIMULATING HORMONE 1.79 ulU/ml (0.34-4.50); TOTAL CARBON DIOXIDE 24.8 MMOL/L (24-32); TRIGLYCERIDES 157 MG/DL (20-135); eCRCL 29 ML/MIN; eGFR 44 ML/MIN
[2023-11-22 11:33] LABS: HEMOGLOBIN A1C 6.1 % (4.5-6.2)
[2023-11-22] MEDS: oxyCODONE/APAP 10/325mg tablet PO PRN (13:19)
[2023-11-22] MEDS ORDERED: LEVO25TA7 PO (17:12)
[2023-11-22] MEDS ORDERED: CYAN10007 IM (17:12)
[2023-11-22] MEDS: normal saline 1000ml 1,000 ML IV SCH (21:32)
[2023-11-23] VITALS (7 sets, daily range): BP systolic 138–180; BP diastolic 54–108; PULSE 64–149; RESP 15–20; TEMP 97.5–100.1; O2SAT 93–96
[2023-11-23] MEDS: oxyCODONE/APAP 10/325mg tablet PO PRN ×3 (04:13→19:47)
[2023-11-23] MEDS: normal saline 1000ml 1,000 ML IV SCH ×2 (05:26→12:23)
[2023-11-23 06:51] LABS: BASOPHILS # (AUTO) 0.1 X10'3 (0-0.2); BASOPHILS % (AUTO) 0.7 % (0-1); EOSINOPHILS # (AUTO) 0.2 X10'3 (0-0.9); EOSINOPHILS % (AUTO) 3.1 % (0-6); HEMATOCRIT 31.5 % (35.0-45.0); HEMOGLOBIN 10.5 g/dl (12.0-16.0); LYMPHOCYTES % (AUTO) 13.5 % (21-51); MEAN CORPUSCULAR HEMOGLOBIN 29.4 PG (27.0-31.0); MEAN CORPUSCULAR HGB CONC 33.2 g/dL (33.0-36.5); MEAN CORPUSCULAR VOLUME 88.5 FL (78-98); MEAN PLATELET VOLUME 6.9 FL (7.4-10.4); MONOCYTES # (AUTO) 0.8 X10'3 (0-0.9); MONOCYTES % (AUTO) 10.3 % (2-12); NEUTROPHILS # (AUTO) 5.5 X10'3 (1.8-7.7); NEUTROPHILS % (AUTO) 72.4 % (42-75); PLATELET COUNT 251 X10'3 (140-440); RED BLOOD COUNT 3.56 X10'6 (4.20-5.60); RED CELL DISTRIBUTION WIDTH 15.9 % (11.5-14.5); WHITE BLOOD COUNT 7.7 X10'3 (4.5-11.0)
[2023-11-23 07:17] LABS: ALBUMIN 2.7 G/DL (3.4-5.0); ALBUMIN/GLOBULIN RATIO 0.7 (1.1-1.5); ALKALINE PHOSPHATASE 81 IU/L (46-116); ANION GAP 9 (8-16); ASPARTATE AMINO TRANSFERASE 17 U/L (10-37); BLOOD UREA NITROGEN 14 MG/DL (7-18); CALCIUM 8.3 MG/DL (8.5-10.1); CHLORIDE 108 MMOL/L (99-107); CREATININE 1.17 MG/DL (0.40-0.90); GLUCOSE 93 MG/DL (70-104); MAGNESIUM 1.6 MG/DL (1.5-2.4); POTASSIUM 3.8 MMOL/L (3.5-5.1); SODIUM 140 MMOL/L (135-145); TOTAL CARBON DIOXIDE 23.4 MMOL/L (24-32); TOTAL PROTEIN 6.7 G/DL (6.4-8.2); eCRCL 29 ML/MIN; eGFR 45 ML/MIN
[2023-11-23 07:18] LABS: ALANINE AMINOTRANSFERASE < 6 U/L (12-78)
[2023-11-23] MEDS ORDERED: diltiazem 5mg/ml 5ml inj. IV ONE (07:50)
[2023-11-23] MEDS ORDERED: metoprolol succinate 25mg (24-HOUR) SR. Tablet PO SCH (08:00)
[2023-11-23] MEDS ORDERED: non-formulary drug (Levothyroxine Sodium 1 TAB) PO SCH (08:00)
[2023-11-23] MEDS ORDERED: atorvastatin 20mg tablet PO SCH (08:00)
[2023-11-23] MEDS ORDERED: aspirin 81mg tab.chew PO SCH (08:00)
[2023-11-23] MEDS: cephalexin 500mg capsule PO SCH ×3 (08:00→21:00)
[2023-11-23] MEDS: pantoprazole 40mg Tablet.DR PO SCH (08:29)
[2023-11-23] MEDS: aspirin 81mg tab.chew PO SCH (08:30)
[2023-11-23] MEDS: clopidogrel 75mg tablet PO SCH (08:33)
[2023-11-23] MEDS: docusate sod 100mg capsule PO SCH ×2 (08:35→19:38)
[2023-11-23] MEDS: K and/or MAG REPLACEMENT MC SCH (08:41)
[2023-11-23] MEDS ORDERED: LEVO200T8 PO (13:49)
[2023-11-23] MEDS ORDERED: LEVO15TA5 PO (13:50)
[2023-11-23] MEDS ORDERED: sotalol HCl 40mg (1/2 tablet) PO ONE (14:20)
[2023-11-23] MEDS: losartan 50mg tablet PO SCH (14:55)
[2023-11-23] MEDS: metoprolol succinate 25mg (24-HOUR) SR. Tablet PO SCH (19:40)
[2023-11-23] MEDS: LORazepam 1 MG tablet PO PRN (19:43)
[2023-11-23] MEDS: sotalol HCl 40mg (1/2 tablet) PO SCH (20:00)
[2023-11-24] MEDS: oxyCODONE/APAP 10/325mg tablet PO PRN (03:52)
[2023-11-24 04:00] VITALS: BP 154/68; PULSE 124; RESP 18; TEMP 97.9; O2SAT 94
[2023-11-24 06:00] VITALS: BP 95/67; PULSE 55; RESP 16; TEMP 98.4; O2SAT 96
[2023-11-24] MEDS ORDERED: levoTHYROXINE 100mcg tablet PO SCH (07:00)
[2023-11-24 07:42] LABS: BASOPHILS # (AUTO) 0.1 X10'3 (0-0.2); BASOPHILS % (AUTO) 0.6 % (0-1); EOSINOPHILS # (AUTO) 0.2 X10'3 (0-0.9); EOSINOPHILS % (AUTO) 1.8 % (0-6); HEMATOCRIT 32.3 % (35.0-45.0); HEMOGLOBIN 10.9 g/dl (12.0-16.0); LYMPHOCYTES % (AUTO) 19.8 % (21-51); MEAN CORPUSCULAR HEMOGLOBIN 29.8 PG (27.0-31.0); MEAN CORPUSCULAR HGB CONC 33.7 g/dL (33.0-36.5); MEAN CORPUSCULAR VOLUME 88.6 FL (78-98); MEAN PLATELET VOLUME 7.2 FL (7.4-10.4); MONOCYTES # (AUTO) 1.1 X10'3 (0-0.9); MONOCYTES % (AUTO) 11.1 % (2-12); NEUTROPHILS # (AUTO) 6.6 X10'3 (1.8-7.7); NEUTROPHILS % (AUTO) 66.7 % (42-75); PLATELET COUNT 267 X10'3 (140-440); RED BLOOD COUNT 3.65 X10'6 (4.20-5.60); RED CELL DISTRIBUTION WIDTH 15.7 % (11.5-14.5); WHITE BLOOD COUNT 9.9 X10'3 (4.5-11.0)
[2023-11-24] MEDS: pantoprazole 40mg Tablet.DR PO SCH (07:51)
[2023-11-24 07:55] LABS: ALANINE AMINOTRANSFERASE 11 U/L (12-78); ALBUMIN 2.4 G/DL (3.4-5.0); ALBUMIN/GLOBULIN RATIO 0.6 (1.1-1.5); ALKALINE PHOSPHATASE 74 IU/L (46-116); ANION GAP 9 (8-16); ASPARTATE AMINO TRANSFERASE 20 U/L (10-37); BILIRUBIN,TOTAL 1.6 MG/DL (0.1-1.0); BLOOD UREA NITROGEN 9 MG/DL (7-18); BUN/CREATININE RATIO 8.6 (10.0-20.0); CALCIUM 8.2 MG/DL (8.5-10.1); CHLORIDE 105 MMOL/L (99-107); CREATININE 1.05 MG/DL (0.40-0.90); GLUCOSE 91 MG/DL (70-104); MAGNESIUM 1.4 MG/DL (1.5-2.4); POTASSIUM 3.6 MMOL/L (3.5-5.1); SODIUM 136 MMOL/L (135-145); TOTAL CARBON DIOXIDE 22.2 MMOL/L (24-32); TOTAL PROTEIN 6.1 G/DL (6.4-8.2); eCRCL 33 ML/MIN; eGFR 51 ML/MIN
[2023-11-24] MEDS: sotalol HCl 40mg (1/2 tablet) PO SCH (08:00)
[2023-11-24] MEDS: losartan 50mg tablet PO SCH (08:00)
[2023-11-24] MEDS ORDERED: atorvastatin 20mg tablet PO SCH (08:00)
[2023-11-24] MEDS: metoprolol succinate 25mg (24-HOUR) SR. Tablet PO SCH (08:00)
[2023-11-24] MEDS: docusate sod 100mg capsule PO SCH (08:30)
[2023-11-24] MEDS: clopidogrel 75mg tablet PO SCH (08:31)
[2023-11-24] MEDS: aspirin 81mg tab.chew PO SCH (08:31)
[2023-11-24] MEDS: cephalexin 500mg capsule PO SCH (08:31)
[2023-11-24 11:00] VITALS: BP 130/50; PULSE 55; RESP 20; TEMP 97.8; O2SAT 96
[2023-11-24 15:00] VITALS: BP 138/63; PULSE 60; RESP 16; TEMP 98.4; O2SAT 98
[2023-11-24] MEDS ORDERED: apixaban 5mg tablet PO SCH (20:00)
[2023-11-24] MEDS ORDERED: metoprolol succinate 25mg (24-HOUR) SR. Tablet PO SCH (20:00)
[2023-11-25] MEDS ORDERED: losartan 25mg tablet PO SCH (08:00)
== END 2023-11-24 16:12 | DRG 65 ==
LOC: ER 16:52 → ED HOLD 19:38 → EDBEDREQ 20:47 → PCU 3S 21:51
PROVIDERS: ADMIT Internal Medicine; ATTEND Family Medicine
PROC: B3251ZZ Computerized Tomography (CT Scan) of Bilateral Common Carotid Arteries using Low Osmolar Contrast (ICD-10-PCS; principal; 2023-11-21)
PROC: B32G1ZZ Computerized Tomography (CT Scan) of Bilateral Vertebral Arteries using Low Osmolar Contrast (ICD-10-PCS; 2023-11-21)
PROC: B32R1ZZ Computerized Tomography (CT Scan) of Intracranial Arteries using Low Osmolar Contrast (ICD-10-PCS; 2023-11-21)
PROC: B3281ZZ Computerized Tomography (CT Scan) of Bilateral Internal Carotid Arteries using Low Osmolar Contrast (ICD-10-PCS; 2023-11-21)
DX: I63.89 Other cerebral infarction (principal); G81.91 Hemiplegia, unspecified affecting right dominant side; R29.705 NIHSS score 5; I65.21 Occlusion and stenosis of right carotid artery; E78.00 Pure hypercholesterolemia, unspecified; I48.91 Unspecified atrial fibrillation; E03.9 Hypothyroidism, unspecified; N18.30 Chronic kidney disease, stage 3 unspecified; I12.9 Hypertensive chronic kidney disease with stage 1 through stage 4 chronic kidney disease, or unspecified chronic kidney disease; M19.90 Unspecified osteoarthritis, unspecified site; I25.10 Atherosclerotic heart disease of native coronary artery without angina pectoris; Z88.8 Allergy status to other drugs, medicaments and biological substances; Z79.01 Long term (current) use of anticoagulants; Z79.82 Long term (current) use of aspirin; Z79.899 Other long term (current) drug therapy; I25.2 Old myocardial infarction; Z91.013 Allergy to seafood; Z82.49 Family history of ischemic heart disease and other diseases of the circulatory system
CPT/HCPCS: 36415; 70450; 70496; 70498; 70551; 71045; 72141; 80053; 80061; 83036; 83735; 84443; 85025; 85610; 85730; 87081; 92508; 92616; 93306; 96365; 96366; 96368; 96375; 97112; 97162; 97530; 99291; A4314; C1758; G0378; J0282; J3490; J7030; Q9967

== ENCOUNTER 2024-03-06 09:01 | Emergency (ER) | payer MEDICARE, OTHER ==
[~2024-03-06] VITALS: Ht 154.9 cm; Wt 56.8 kg
[~2024-03-06 09:01] MED LIST changes: +CYAN10007 IM; -LEVO150T8 PO; +LEVO200T8 PO
[2024-03-06 11:11] VITALS: TEMP 98.3
[2024-03-06] MEDS: LIDOcaine 1% w/epiNEPHrine 1:200,000 30ml vial SQ ONE (11:55)
[2024-03-06] MEDS ORDERED: LIDOcaine 1% w/EPI 1:100,000 30ml vial (MDV) SQ ONE (12:05)
[2024-03-06] MEDS: LIDOcaine 1% W/epiNEPHrine 1:100,000 20ml vial SQ ONE (13:03)
[2024-03-06] MEDS ORDERED: HYDR-3965 PO (13:09)
[2024-03-06] MEDS ORDERED: CEPH-585 PO (13:09)
[2024-03-06 14:02] VITALS: BP 141/65; PULSE 76; RESP 12; O2SAT 98
== END 2024-03-06 14:07 | disposition home or self-care (01) ==
LOC: ER 09:01
DX: S01.01XA Laceration without foreign body of scalp, initial encounter (principal); I25.10 Atherosclerotic heart disease of native coronary artery without angina pectoris; E78.00 Pure hypercholesterolemia, unspecified; I10 Essential (primary) hypertension; I25.2 Old myocardial infarction; M19.90 Unspecified osteoarthritis, unspecified site; Z98.890 Other specified postprocedural states; W10.9XXA Fall (on) (from) unspecified stairs and steps, initial encounter; Z91.013 Allergy to seafood; Z88.8 Allergy status to other drugs, medicaments and biological substances; Y93.89 Activity, other specified; Y92.89 Other specified places as the place of occurrence of the external cause; Y99.8 Other external cause status
CPT/HCPCS: 12002; 70450; 72125; 93005; 99285; J7030; A6446; A6449

== ENCOUNTER 2024-06-27 17:01 | Inpatient (IN) | payer MEDICARE, OTHER ==
[~2024-06-27] VITALS: Ht 157.5 cm; Wt 58.7 kg
[2024-06-27 17:55] LABS: BASOPHILS # (AUTO) 0.1 X10'3 (0-0.2); BASOPHILS % (AUTO) 0.6 % (0-1); EOSINOPHILS # (AUTO) 0.1 X10'3 (0-0.9); EOSINOPHILS % (AUTO) 0.5 % (0-6); HEMATOCRIT 33.7 % (35.0-45.0); LYMPHOCYTES # (AUTO) 1.5 X10'3 (1.1-4.8); LYMPHOCYTES % (AUTO) 12.1 % (21-51); MEAN CORPUSCULAR HGB CONC 32.8 g/dL (33.0-36.5); MEAN CORPUSCULAR VOLUME 79.3 FL (78-98); MEAN PLATELET VOLUME 7.2 FL (7.4-10.4); MONOCYTES # (AUTO) 1.5 X10'3 (0-0.9); MONOCYTES % (AUTO) 11.6 % (2-12); NEUTROPHILS # (AUTO) 9.5 X10'3 (1.8-7.7); NEUTROPHILS % (AUTO) 75.2 % (42-75); PLATELET COUNT 222 X10'3 (140-440); RED BLOOD COUNT 4.24 X10'6 (4.20-5.60); RED CELL DISTRIBUTION WIDTH 23.9 % (11.5-14.5); WHITE BLOOD COUNT 12.6 X10'3 (4.5-11.0)
[2024-06-27 18:07] LABS: ALBUMIN 3.4 G/DL (3.4-5.0); ANION GAP 10 (8-16); BLOOD UREA NITROGEN 13 MG/DL (7-18); BUN/CREATININE RATIO 12.4 (10.0-20.0); CHLORIDE 101 MMOL/L (99-107); CREATININE 1.05 MG/DL (0.40-0.90); GLUCOSE 116 MG/DL (70-104); POTASSIUM 3.5 MMOL/L (3.5-5.1); SODIUM 135 MMOL/L (135-145); TOTAL CARBON DIOXIDE 24.4 MMOL/L (24-32); eCRCL 32 ML/MIN; eGFR 50 ML/MIN
[2024-06-27] MEDS: diltiazem 5mg/ml 5ml inj. IV ONE ×2 (18:23→23:26)
[2024-06-27] MEDS: acetaminophen 325mg tablet PO ONE (18:24)
[2024-06-27] MEDS: normal saline 1000ml 1,000 ML IV ONE (18:24)
[2024-06-27] MEDS: diltiazem-NS 100mg/100ml 100 ML IV SCH (19:28)
[2024-06-27 20:23] LABS: BILIRUBIN,URINE NEGATIVE (Neg); CLARITY,URINE CLOUDY (Clear); COLOR,URINE YELLOW (Yellow); GLUCOSE, URINE NEGATIVE (Neg); KETONES,URINE TRACE mg/dl (Neg); LEUKOCYTE ESTERASE ,URINE SMALL (Neg); NITRITES, URINE NEGATIVE (Neg); OCCULT BLOOD,URINE SMALL (Neg); PH,URINE 5.5 (4.8-8.0); PROTEIN,URINE 30 mg/dl (Neg); UROBILINOGEN,URINE 0.2 E.U/dL (0.2-1.0)
[2024-06-27 20:26] LABS: UA COLLECTION TYPE STRAIGHT CATH
[2024-06-27 20:33] LABS: SQUAMOUS EPITHELIAL CELL,UR FEW /LPF (FEW)
[2024-06-27 20:34] LABS: BACTERIA,URINE FEW /HPF (Neg)
[2024-06-27 20:35] LABS: WBC CLUMPS,URINE FEW /HPF (NEGATIVE); WBC,URINE 50-100 /HPF (0-4)
[2024-06-27] MEDS: CefTRIAXone 2gm/D5W 50ml BAG 50 ML IV ONE (22:05)
[2024-06-27] MEDS: ibuprofen tablet 400 MG TABLET PO ONE (22:08)
[2024-06-27] MEDS ORDERED: NIRM1TAB9 PO (22:11)
[2024-06-27] MEDS ORDERED: CEPH-585 PO (22:11)
[2024-06-27] MEDS ORDERED: IBUP-1984 PO (22:11)
[2024-06-27] MEDS ORDERED: ACET-812 PO (22:11)
[2024-06-28] VITALS (8 sets, daily range): BP systolic 108–120; BP diastolic 52–76; PULSE 59–105; RESP 14–18; TEMP 98–98.8; O2SAT 92–99
[2024-06-28] MEDS: diltiazem-NS 100mg/100ml 100 ML IV SCH ×2 (00:30→12:00)
[2024-06-28] MEDS ORDERED: diltiazem-NS 100mg/100ml 125 ML IV SCH (00:30)
[2024-06-28] MEDS ORDERED: potassium Cl 40MEQ/1/2NS 520ml 520 ML IV PRN (01:05)
[2024-06-28] MEDS ORDERED: magnesium sulf-water 4G/100mL 100 ML IV PRN (01:05)
[2024-06-28] MEDS ORDERED: mag hydrox/Alum hydrox/simeth 30ml oral suspension PO PRN (01:05)
[2024-06-28] MEDS: normal saline 1000ml 1,000 ML IV SCH (01:05)
[2024-06-28] MEDS ORDERED: ondansetron/PF 4mg/2ml inj IV PRN (01:05)
[2024-06-28] MEDS ORDERED: potassium Cl 20 mEq SR tablet PO PRN (01:05)
[2024-06-28] MEDS ORDERED: magnesium hydroxide 30ml (MOM) UD suspension PO PRN (01:05)
[2024-06-28] MEDS ORDERED: magnesium sulf-water 2g/50mL 50 ML IV PRN (01:05)
[2024-06-28 02:57] LABS: MAGNESIUM 1.4 MG/DL (1.5-2.4)
[2024-06-28 06:51] LABS: MAGNESIUM 1.3 MG/DL (1.5-2.4); POTASSIUM 3.3 MMOL/L (3.5-5.1)
[2024-06-28] MEDS ORDERED: heparin, porcine 5000 units/ml vial SQ SCH (08:00)
[2024-06-28] MEDS: potassium Cl 20 mEq SR tablet PO PRN (08:21)
[2024-06-28] MEDS: magnesium Cl slow-release 64mg tablet PO PRN (08:22)
[2024-06-28] MEDS: K and/or MAG REPLACEMENT MC SCH (08:22)
[2024-06-28] MEDS: docusate sod 100mg capsule PO SCH (08:22)
[2024-06-28] MEDS: metoprolol succinate 25mg (24-HOUR) SR. Tablet PO ONE (11:14)
[2024-06-28] MEDS: acetaminophen 325mg tablet PO PRN (14:17)
[2024-06-28 17:57] LABS: BASOPHILS % (AUTO) 0.3 % (0-1); EOSINOPHILS % (AUTO) 0.1 % (0-6); HEMATOCRIT 27.5 % (35.0-45.0); HEMOGLOBIN 8.9 g/dl (12.0-16.0); LYMPHOCYTES # (AUTO) 0.9 X10'3 (1.1-4.8); LYMPHOCYTES % (AUTO) 7.6 % (21-51); MEAN CORPUSCULAR HEMOGLOBIN 26.6 PG (27.0-31.0); MEAN CORPUSCULAR HGB CONC 32.4 g/dL (33.0-36.5); MEAN CORPUSCULAR VOLUME 82.2 FL (78-98); MEAN PLATELET VOLUME 7.3 FL (7.4-10.4); MONOCYTES % (AUTO) 8.6 % (2-12); NEUTROPHILS # (AUTO) 9.8 X10'3 (1.8-7.7); NEUTROPHILS % (AUTO) 83.4 % (42-75); PLATELET COUNT 170 X10'3 (140-440); RED BLOOD COUNT 3.34 X10'6 (4.20-5.60); RED CELL DISTRIBUTION WIDTH 23.8 % (11.5-14.5); WHITE BLOOD COUNT 11.8 X10'3 (4.5-11.0)
[2024-06-28 18:08] LABS: D-DIMER 1.12 MG/L FEU (0-0.50)
[2024-06-28 18:22] LABS: ALANINE AMINOTRANSFERASE 18 U/L (12-78); ALBUMIN 2.5 G/DL (3.4-5.0); ALBUMIN/GLOBULIN RATIO 0.7 (1.1-1.5); ALKALINE PHOSPHATASE 144 IU/L (46-116); ANION GAP 7 (8-16); ASPARTATE AMINO TRANSFERASE 33 U/L (10-37); BILIRUBIN,TOTAL 1.3 MG/DL (0.1-1.0); BLOOD UREA NITROGEN 10 MG/DL (7-18); BUN/CREATININE RATIO 9.3 (10.0-20.0); CHLORIDE 108 MMOL/L (99-107); CREATININE 1.07 MG/DL (0.40-0.90); GLUCOSE 144 MG/DL (70-104); POTASSIUM 3.5 MMOL/L (3.5-5.1); SODIUM 135 MMOL/L (135-145); TOTAL CARBON DIOXIDE 19.7 MMOL/L (24-32); eCRCL 33 ML/MIN; eGFR 49 ML/MIN
[2024-06-28 18:27] LABS: LACTATE DEHYDROGENASE 191 U/L (81-234)
[2024-06-28 18:32] LABS: PLATELET ESTIMATE NORMAL
[2024-06-28 18:33] LABS: ANISOCYTOSIS 3+; HYPOCHROMASIA 1+; POIKILOCYTOSIS FEW; POLYCHROMASIA FEW
[2024-06-28] MEDS: CefTRIAXone/D5W-Rocephin 1gm 50 ML IV SCH (19:56)
[2024-06-28] MEDS: apixaban 5mg tablet PO SCH (19:57)
[2024-06-28] MEDS: metoprolol succinate 25mg (24-HOUR) SR. Tablet PO SCH (19:57)
[2024-06-28] MEDS ORDERED: NIRMATRELVIR/RITONAVIR 300/100mg - 1 EACH TAB.DS.PK PO SCH (20:00)
[2024-06-28] MEDS ORDERED: apixaban 5mg tablet PO SCH (20:00)
[2024-06-28] MEDS: sotalol HCl 40mg (1/2 tablet) PO SCH (20:56)
[2024-06-28] MEDS: temazepam 15mg capsule PO PRN (20:56)
[2024-06-29] VITALS (8 sets, daily range): BP systolic 127–153; BP diastolic 62–86; PULSE 59–68; RESP 18–25; TEMP 97.5–102.1; O2SAT 94–99
[2024-06-29] MEDS ORDERED: acetaminophen 325mg tablet PO PRN (04:30)
[2024-06-29 06:14] LABS: BASOPHILS # (AUTO) 0.1 X10'3 (0-0.2); BASOPHILS % (AUTO) 0.4 % (0-1); EOSINOPHILS % (AUTO) 0.2 % (0-6); HEMATOCRIT 30.4 % (35.0-45.0); HEMOGLOBIN 9.9 g/dl (12.0-16.0); LYMPHOCYTES # (AUTO) 0.9 X10'3 (1.1-4.8); LYMPHOCYTES % (AUTO) 7.4 % (21-51); MEAN CORPUSCULAR HEMOGLOBIN 26.6 PG (27.0-31.0); MEAN CORPUSCULAR HGB CONC 32.4 g/dL (33.0-36.5); MEAN CORPUSCULAR VOLUME 82.1 FL (78-98); MEAN PLATELET VOLUME 7.8 FL (7.4-10.4); MONOCYTES # (AUTO) 1.2 X10'3 (0-0.9); MONOCYTES % (AUTO) 9.9 % (2-12); NEUTROPHILS # (AUTO) 9.6 X10'3 (1.8-7.7); NEUTROPHILS % (AUTO) 82.1 % (42-75); PLATELET COUNT 195 X10'3 (140-440); RED CELL DISTRIBUTION WIDTH 24.5 % (11.5-14.5); WHITE BLOOD COUNT 11.7 X10'3 (4.5-11.0)
[2024-06-29 06:31] LABS: ALBUMIN 2.8 G/DL (3.4-5.0); ANION GAP 10 (8-16); BLOOD UREA NITROGEN 11 MG/DL (7-18); BUN/CREATININE RATIO 10.4 (10.0-20.0); CALCIUM 8.4 MG/DL (8.5-10.1); CHLORIDE 105 MMOL/L (99-107); CREATININE 1.06 MG/DL (0.40-0.90); GLUCOSE 126 MG/DL (70-104); MAGNESIUM 1.6 MG/DL (1.5-2.4); POTASSIUM 3.7 MMOL/L (3.5-5.1); SODIUM 134 MMOL/L (135-145); TOTAL CARBON DIOXIDE 18.7 MMOL/L (24-32); eCRCL 33 ML/MIN; eGFR 50 ML/MIN
[2024-06-29] MEDS: LEVOMEFOLATE CALCIUM PO SCH (08:00)
[2024-06-29] MEDS ORDERED: sotalol HCl 40mg (1/2 tablet) PO SCH (08:00)
[2024-06-29 08:08] LABS: PLATELET ESTIMATE NORMAL
[2024-06-29 08:09] LABS: ANISOCYTOSIS 3+
[2024-06-29] MEDS: atorvastatin 20mg tablet PO SCH (08:27)
[2024-06-29] MEDS: losartan 25mg tablet PO SCH (08:27)
[2024-06-29] MEDS: levoTHYROXINE 100mcg tablet PO SCH (08:28)
[2024-06-29 10:40] LABS: C-REACTIVE PROTEIN 18.03 MG/DL (0.0-0.5); LACTATE DEHYDROGENASE 250 U/L (81-234)
[2024-06-29] MEDS: dexamethasone 4mg tablet PO SCH (10:41)
[2024-06-29] MEDS ORDERED: LOSA25TA41 PO (13:08)
[2024-06-29] MEDS ORDERED: CIPR-259 PO (14:48)
== END 2024-06-29 16:38 | disposition home or self-care (01) | DRG 871 ==
LOC: ER 17:02 → ED HOLD 06-28 01:05 → EDBEDREQ 06-28 02:44 → PCU 3S 06-28 03:37
PROVIDERS: ADMIT Surgery; ATTEND Internal Medicine
DX: A41.9 Sepsis, unspecified organism (principal); U07.1 COVID-19; N39.0 Urinary tract infection, site not specified; N17.9 Acute kidney failure, unspecified; I48.91 Unspecified atrial fibrillation; E78.00 Pure hypercholesterolemia, unspecified; Z66 Do not resuscitate; E87.6 Hypokalemia; I10 Essential (primary) hypertension; I25.10 Atherosclerotic heart disease of native coronary artery without angina pectoris; I25.2 Old myocardial infarction; Z88.8 Allergy status to other drugs, medicaments and biological substances; Z79.01 Long term (current) use of anticoagulants; Z79.82 Long term (current) use of aspirin; Z79.899 Other long term (current) drug therapy; B96.20 Unspecified Escherichia coli [E. coli] as the cause of diseases classified elsewhere
CPT/HCPCS: 36415; 71045; 80048; 80053; 81001; 83605; 83615; 83735; 84132; 84145; 84484; 85008; 85025; 85379; 85651; 86140; 87040; 87077; 87081; 87088; 87186; 87502; 87503; 87811; 93005; 93306; 99285; A4615; A6212; G0378; J0696; J3490; J7030

== ENCOUNTER 2024-10-16 05:32 | Inpatient (IN) | payer MEDICARE, OTHER ==
[2024-10-13 13:00] LABS: BASOPHILS # (AUTO) 0.1 X10'3 (0-0.2); BASOPHILS % (AUTO) 0.8 % (0-1); EOSINOPHILS # (AUTO) 0.3 X10'3 (0-0.9); EOSINOPHILS % (AUTO) 4.5 % (0-6); LYMPHOCYTES # (AUTO) 2.2 X10'3 (1.1-4.8); MEAN CORPUSCULAR HEMOGLOBIN 31.9 PG (27.0-31.0); MEAN CORPUSCULAR HGB CONC 34.6 g/dL (33.0-36.5); MEAN CORPUSCULAR VOLUME 92.1 FL (78-98); MEAN PLATELET VOLUME 7.3 FL (7.4-10.4); MONOCYTES # (AUTO) 0.7 X10'3 (0-0.9); MONOCYTES % (AUTO) 8.8 % (2-12); NEUTROPHILS # (AUTO) 4.3 X10'3 (1.8-7.7); NEUTROPHILS % (AUTO) 56.9 % (42-75); PRE OP HEMATOCRIT 35.6 % (35.0-45.0); PRE OP HEMOGLOBIN 12.3 g/dL (12.0-16.0); PRE OP PLATELET COUNT 278 X10'3 (140-440); PRE OP WHITE BLOOD COUNT 7.5 10'3 (4.8-10.8); RED BLOOD COUNT 3.87 X10'6 (4.20-5.60); RED CELL DISTRIBUTION WIDTH 14.5 % (11.5-14.5)
[2024-10-13 13:03] LABS: PRE OP PROTIME 10.6 SECONDS (9.0-12.0)
[2024-10-13 13:15] LABS: ALKALINE PHOSPHATASE 106 IU/L (46-116); BLOOD UREA NITROGEN 26 MG/DL (7-18); CALCIUM 9.7 MG/DL (8.5-10.1); CHLORIDE 106 MMOL/L (99-107); CREATININE 1.04 MG/DL (0.40-0.90); PRE OP ALT 18 U/L (30-65); PRE OP ANION GAP 12 (8-16); PRE OP AST 21 U/L (10-37); PRE OP BILIRUB, TOTAL 1.2 MG/DL (0.0-1.0); PRE OP GLUCOSE 101 MG/DL (70-104); PRE OP POTASSIUM 3.8 MMOL/L (3.4-5.1); PRE OP SODIUM 142 MMOL/L (135-145); THYROID STIMULATING HORMONE 0.06 ulU/ml (0.34-4.50); TOTAL CARBON DIOXIDE 24.3 MMOL/L (24-32); eGFR 51 ML/MIN
[2024-10-13 13:27] LABS: BILIRUBIN,URINE NEGATIVE (Neg); CLARITY,URINE SLIGHTLY CLOUDY (Clear); COLOR,URINE YELLOW (Yellow); GLUCOSE, URINE NEGATIVE (Neg); KETONES,URINE NEGATIVE (Neg); LEUKOCYTE ESTERASE ,URINE SMALL (Neg); NITRITES, URINE NEGATIVE (Neg); OCCULT BLOOD,URINE NEGATIVE (Neg); PROTEIN,URINE NEGATIVE (Neg); UROBILINOGEN,URINE 0.2 E.U/dL (0.2-1.0)
[2024-10-13 13:33] LABS: UA COLLECTION TYPE NON-SPECIFIED
[2024-10-13 13:34] LABS: BACTERIA,URINE 3+ /HPF (Neg); MUCUS STRANDS FEW /LPF (Neg); SQUAMOUS EPITHELIAL CELL,UR MODERATE /LPF (FEW); WBC,URINE TNTC /HPF (0-4)
[2024-10-13 13:35] LABS: WBC CLUMPS,URINE FEW /HPF (NEGATIVE)
[2024-10-16] VITALS (24 sets, daily range): BP systolic 116–164; BP diastolic 39–84; PULSE 54–72; RESP 10–16; TEMP 97.6; O2SAT 91–100
[~2024-10-16] VITALS: Ht 152.4 cm; Wt 63.7 kg
[2024-10-16] MEDS: ceFAZolin 2gm in dextrose, iso 50 ML IV ONE (05:30)
[~2024-10-16 05:32] MED LIST changes: -ASPI-529 PO; +BACL10TA2 PO; -CEPH-585 PO; +CHOL100017 PO; -CHOL400T8 PO; -CYAN10007 IM; -DOCU-148 PO; -ESTR0.5T28 PO; -LEVO15TA5 PO; +LEVO200C2 PO; -LEVO200T8 PO; -MULT-1179 PO; +MULT-1249 PO; -PHEN-824 PO; +SIMV-343 PO; -SIMV-45 PO; -TICA90TA PO
[2024-10-16] MEDS ORDERED: LIDOcaine 1% (10mg/ml)w/preservative inj. 20ml MDV ONE (07:00)
[2024-10-16] MEDS ORDERED: LIDOcaine 1% (10mg/ml) 2ml vial ONE (07:02)
[2024-10-16] MEDS ORDERED: heparin 10,000 units/1 ML INJ ONE (07:03)
[2024-10-16] MEDS: famotidine 20mg tablet PO ONE (07:21)
[2024-10-16] MEDS: ringers solution, lacted 1,000 ML IV SCH ×2 (07:22→12:41)
[2024-10-16] MEDS ORDERED: fentaNYL/PF 50MCG/1 ML 2ML syringe ONE (07:53)
[2024-10-16] MEDS ORDERED: midazolam 1 mg/ML 2ml injection ONE (07:53)
[2024-10-16] MEDS ORDERED: rocuronium 10mg/ml inj IV ONE (07:54)
[2024-10-16] MEDS ORDERED: propofol inj 20 ML IV ONE (07:54)
[2024-10-16] MEDS ORDERED: proCHLORperazine 10 MG/2 ml inj IV PRN (08:15)
[2024-10-16] MEDS ORDERED: meperidine/PF 25mg/ml syringe IV PRN ×2 (08:15)
[2024-10-16] MEDS ORDERED: morphine 4 MG/ML inj SYRINge IV PRN (08:15)
[2024-10-16] MEDS ORDERED: labetalol 20mg/4ml (5mg/ml) syringe IV PRN (08:15)
[2024-10-16] MEDS ORDERED: morphine 2 MG/ML inj. syringe IV PRN (08:15)
[2024-10-16] MEDS ORDERED: ondansetron/PF 4mg/2ml inj IV PRN (08:15)
[2024-10-16] MEDS ORDERED: sevoflurane 250ml liquid IH ONE (08:21)
[2024-10-16] MEDS ORDERED: heparin 1,000unit/ml 10ml vial 10 ML ONE (08:27)
[2024-10-16] MEDS: LIDOcaine 1% (10mg/ml) 2ml vial SQ ONE (08:40)
[2024-10-16] MEDS ORDERED: ondansetron/PF 4mg/2ml inj ONE (09:48)
[2024-10-16] MEDS ORDERED: labetalol 20mg/4ml (5mg/ml) syringe IV ONE (09:57)
[2024-10-16] MEDS ORDERED: sugammadex 200mg/2ml injection IV ONE (10:09)
[2024-10-16] MEDS ORDERED: naloxone 0.4 mg/ml inj IV PRN (10:40)
[2024-10-16] MEDS: albuterol 2.5 MG/3 ML nebule NEB SCH (11:00)
[2024-10-16 11:05] LABS: APTT > 139 SECONDS (22-32)
[2024-10-16] MEDS: meperidine/PF 25mg/ml syringe IV PRN (11:18)
[2024-10-16] MEDS: phenylephrine inj 50 MG in normal saline 250ml IV solN IV SCH (12:35)
[2024-10-16] MEDS: DOCUMENT DATE & TIME OF BETA-BLOCKER PO ONE (12:36)
[2024-10-16] MEDS: nitroPRUSSIDE sod inj. 50 MG in dextrose 5%-water 248 ML IV SCH (12:40)
[2024-10-16] MEDS: potassium CL 20mEq in D5-1/2NS 1,000 ML IV SCH (12:59)
[2024-10-16] MEDS: aspirin 300mg supp.rect RC STA (13:03)
[2024-10-16] MEDS ORDERED: ceFAZolin inj. 1,000 MG in dextrose 5%-water 50ml 50 ML IV SCH (16:00)
[2024-10-16] MEDS: levoFLOXACIN-Levaquin 750MG/D5 150 ML IV SCH (16:20)
[2024-10-16] MEDS: nitroPRUSSIDE (NIPRIDE) (200MCG/ML) 100ML Drip IV SCH (18:18)
[2024-10-16] MEDS: metoprolol tartrate 25mg tablet PO SCH (20:25)
[2024-10-16] MEDS: baclofen 10mg tablet PO PRN (20:27)
[2024-10-16] MEDS: HYDROcodone/acetaminophen 5mg/325mg tablet PO PRN (21:59)
[2024-10-17] VITALS (25 sets, daily range): BP systolic 127–164; BP diastolic 43–70; PULSE 55–74; RESP 10–17; O2SAT 94–100
[2024-10-17 02:58] LABS: BASOPHILS % (AUTO) 0.2 % (0-1); EOSINOPHILS % (AUTO) 0 % (0-6); HEMATOCRIT 29.5 % (35.0-45.0); LYMPHOCYTES # (AUTO) 1.3 X10'3 (1.1-4.8); LYMPHOCYTES % (AUTO) 15.9 % (21-51); MEAN CORPUSCULAR HEMOGLOBIN 31.5 PG (27.0-31.0); MEAN CORPUSCULAR HGB CONC 33.9 g/dL (33.0-36.5); MEAN CORPUSCULAR VOLUME 92.9 FL (78-98); MEAN PLATELET VOLUME 7.4 FL (7.4-10.4); MONOCYTES # (AUTO) 0.8 X10'3 (0-0.9); MONOCYTES % (AUTO) 9.9 % (2-12); NEUTROPHILS # (AUTO) 6.1 X10'3 (1.8-7.7); PLATELET COUNT 222 X10'3 (140-440); RED BLOOD COUNT 3.17 X10'6 (4.20-5.60); RED CELL DISTRIBUTION WIDTH 13.7 % (11.5-14.5); WHITE BLOOD COUNT 8.3 X10'3 (4.5-11.0)
[2024-10-17 03:08] LABS: ANION GAP 12 (8-16); BLOOD UREA NITROGEN 20 MG/DL (7-18); BUN/CREATININE RATIO 18.9 (10.0-20.0); CALCIUM 8.4 MG/DL (8.5-10.1); CHLORIDE 105 MMOL/L (99-107); CREATININE 1.06 MG/DL (0.40-0.90); GLUCOSE 100 MG/DL (70-104); SODIUM 140 MMOL/L (135-145); TOTAL CARBON DIOXIDE 22.9 MMOL/L (24-32); eCRCL 30 ML/MIN; eGFR 50 ML/MIN
[2024-10-17] MEDS: levoTHYROXINE 100mcg tablet PO SCH (12:04)
[2024-10-17] MEDS: losartan 50mg tablet PO SCH (12:05)
[2024-10-17] MEDS: hydrALAZINE 20mg/ml inj. IV PRN (14:34)
[2024-10-17] MEDS: levoFLOXACIN-Levaquin 750MG/D5 150 ML IV SCH (15:25)
[2024-10-17] MEDS: HYDROmorphone inj. 0.5 MG/0.5 ML DISP.SYRIN IV PRN (20:17)
[2024-10-18] VITALS (24 sets, daily range): BP systolic 121–161; BP diastolic 37–95; PULSE 52–142; RESP 10–21; O2SAT 93–100
[2024-10-18 03:36] LABS: BASOPHILS % (AUTO) 0.4 % (0-1); EOSINOPHILS # (AUTO) 0.2 X10'3 (0-0.9); EOSINOPHILS % (AUTO) 2.7 % (0-6); HEMOGLOBIN 10.8 g/dl (12.0-16.0); LYMPHOCYTES % (AUTO) 22.7 % (21-51); MEAN CORPUSCULAR HEMOGLOBIN 31.2 PG (27.0-31.0); MEAN CORPUSCULAR HGB CONC 33.7 g/dL (33.0-36.5); MEAN CORPUSCULAR VOLUME 92.7 FL (78-98); MEAN PLATELET VOLUME 7.2 FL (7.4-10.4); NEUTROPHILS # (AUTO) 5.4 X10'3 (1.8-7.7); NEUTROPHILS % (AUTO) 62.2 % (42-75); PLATELET COUNT 207 X10'3 (140-440); RED BLOOD COUNT 3.45 X10'6 (4.20-5.60); RED CELL DISTRIBUTION WIDTH 14.2 % (11.5-14.5); WHITE BLOOD COUNT 8.6 X10'3 (4.5-11.0)
[2024-10-18 03:51] LABS: ANION GAP 9 (8-16); BLOOD UREA NITROGEN 15 MG/DL (7-18); BUN/CREATININE RATIO 15.8 (10.0-20.0); CALCIUM 8.9 MG/DL (8.5-10.1); CHLORIDE 107 MMOL/L (99-107); CREATININE 0.95 MG/DL (0.40-0.90); GLUCOSE 105 MG/DL (70-104); POTASSIUM 3.9 MMOL/L (3.5-5.1); SODIUM 141 MMOL/L (135-145); TOTAL CARBON DIOXIDE 25.1 MMOL/L (24-32); eCRCL 34 ML/MIN; eGFR 57 ML/MIN
[2024-10-18] MEDS: amiodarone 150mg/dext, iso-os 100 ML IV ONE ×3 (05:19→07:49)
[2024-10-18] MEDS: amiodarone/D5 360MG/200ML BAG 200 ML IV SCH ×2 (05:34→19:49)
[2024-10-18] MEDS: ondansetron/PF 4mg/2ml inj IV PRN (05:55)
[2024-10-18] MEDS ORDERED: acetaminophen 325mg tablet PO PRN ×2 (07:30)
[2024-10-18] MEDS: metoclopramide 5 mg/ml inj IV PRN (07:40)
[2024-10-18] MEDS: COMMUNICATION ORDER 1 EA MISC MC ONE (07:49)
[2024-10-18 08:37] LABS: MAGNESIUM 1.6 MG/DL (1.5-2.4)
[2024-10-18] MEDS: magnesium sulf-water 4G/100mL 100 ML IV ONE (09:51)
[2024-10-18] MEDS: apixaban 5mg tablet PO SCH (10:31)
[2024-10-18] MEDS: amiodarone 200mg tablet PO SCH (19:49)
[2024-10-19] VITALS (23 sets, daily range): BP systolic 109–175; BP diastolic 42–103; PULSE 52–128; RESP 8–20; O2SAT 91–100
[2024-10-19 04:16] LABS: BASOPHILS % (AUTO) 0.4 % (0-1); EOSINOPHILS # (AUTO) 0.2 X10'3 (0-0.9); EOSINOPHILS % (AUTO) 2.4 % (0-6); HEMATOCRIT 33.6 % (35.0-45.0); HEMOGLOBIN 11.5 g/dl (12.0-16.0); LYMPHOCYTES # (AUTO) 1.8 X10'3 (1.1-4.8); LYMPHOCYTES % (AUTO) 20.6 % (21-51); MEAN CORPUSCULAR HEMOGLOBIN 31.6 PG (27.0-31.0); MEAN CORPUSCULAR HGB CONC 34.2 g/dL (33.0-36.5); MEAN CORPUSCULAR VOLUME 92.5 FL (78-98); MEAN PLATELET VOLUME 7.5 FL (7.4-10.4); MONOCYTES # (AUTO) 0.9 X10'3 (0-0.9); MONOCYTES % (AUTO) 10.7 % (2-12); NEUTROPHILS # (AUTO) 5.8 X10'3 (1.8-7.7); NEUTROPHILS % (AUTO) 65.9 % (42-75); PLATELET COUNT 243 X10'3 (140-440); RED BLOOD COUNT 3.63 X10'6 (4.20-5.60); RED CELL DISTRIBUTION WIDTH 14.4 % (11.5-14.5); WHITE BLOOD COUNT 8.8 X10'3 (4.5-11.0)
[2024-10-19 04:34] LABS: ALBUMIN 2.9 G/DL (3.4-5.0); ANION GAP 9 (8-16); BLOOD UREA NITROGEN 11 MG/DL (7-18); BUN/CREATININE RATIO 12.1 (10.0-20.0); CHLORIDE 106 MMOL/L (99-107); CREATININE 0.91 MG/DL (0.40-0.90); GLUCOSE 119 MG/DL (70-104); POTASSIUM 3.5 MMOL/L (3.5-5.1); SODIUM 140 MMOL/L (135-145); TOTAL CARBON DIOXIDE 25.3 MMOL/L (24-32); eCRCL 35 ML/MIN; eGFR 59 ML/MIN
[2024-10-19] MEDS: levoFLOXACIN-Levaquin 750MG/D5 150 ML IV SCH (09:00)
[2024-10-19] MEDS: amiodarone 200mg tablet PO SCH (12:59)
[2024-10-19] MEDS: sotalol HCl 40mg (1/2 tablet) PO ONE (15:16)
[2024-10-19] MEDS: fentaNYL/PF 50MCG/1 ML 2ML syringe ONE (22:30)
[2024-10-20] VITALS (13 sets, daily range): BP systolic 98–154; BP diastolic 35–106; PULSE 27–126; RESP 10–22; O2SAT 97–99
[2024-10-20 06:18] LABS: BASOPHILS % (AUTO) 0.3 % (0-1); EOSINOPHILS # (AUTO) 0.3 X10'3 (0-0.9); EOSINOPHILS % (AUTO) 3.6 % (0-6); HEMATOCRIT 35.5 % (35.0-45.0); HEMOGLOBIN 12.1 g/dl (12.0-16.0); LYMPHOCYTES % (AUTO) 21.9 % (21-51); MEAN CORPUSCULAR HEMOGLOBIN 31.4 PG (27.0-31.0); MEAN CORPUSCULAR HGB CONC 34.1 g/dL (33.0-36.5); MEAN PLATELET VOLUME 7.4 FL (7.4-10.4); MONOCYTES # (AUTO) 1.2 X10'3 (0-0.9); NEUTROPHILS # (AUTO) 5.6 X10'3 (1.8-7.7); NEUTROPHILS % (AUTO) 61.2 % (42-75); PLATELET COUNT 256 X10'3 (140-440); RED BLOOD COUNT 3.85 X10'6 (4.20-5.60); WHITE BLOOD COUNT 9.1 X10'3 (4.5-11.0)
[2024-10-20 06:41] LABS: ALBUMIN 2.9 G/DL (3.4-5.0); ANION GAP 9 (8-16); BLOOD UREA NITROGEN 13 MG/DL (7-18); CALCIUM 8.8 MG/DL (8.5-10.1); CHLORIDE 104 MMOL/L (99-107); GLUCOSE 103 MG/DL (70-104); POTASSIUM 3.8 MMOL/L (3.5-5.1); SODIUM 141 MMOL/L (135-145); TOTAL CARBON DIOXIDE 28.4 MMOL/L (24-32); eCRCL 32 ML/MIN; eGFR 53 ML/MIN
[2024-10-20] MEDS: sotalol HCl 40mg (1/2 tablet) PO SCH (07:46)
== END 2024-10-20 13:30 | disposition home or self-care (01) | DRG 39 ==
LOC: PAS IN 05:32 → CICU 2S 12:43
PROVIDERS: ADMIT Surgery; ATTEND Surgery
PROC: 03UK0KZ Supplement Right Internal Carotid Artery with Nonautologous Tissue Substitute, Open Approach (ICD-10-PCS; 2024-10-16)
PROC: 4A10X4Z Monitoring of Central Nervous Electrical Activity, External Approach (ICD-10-PCS; 2024-10-16)
PROC: 03CK0ZZ Extirpation of Matter from Right Internal Carotid Artery, Open Approach (ICD-10-PCS; principal; 2024-10-16 08:21)
DX: I65.21 Occlusion and stenosis of right carotid artery (principal); J06.9 Acute upper respiratory infection, unspecified; I48.91 Unspecified atrial fibrillation; Z88.8 Allergy status to other drugs, medicaments and biological substances; Z86.73 Personal history of transient ischemic attack (TIA), and cerebral infarction without residual deficits; Z79.01 Long term (current) use of anticoagulants
CPT/HCPCS: 36415; 70490; 71046; 80048; 80053; 81001; 82948; 83735; 84443; 85025; 85610; 85730; 86885; 86900; 86901; 87077; 87081; 87088; 87186; 93005; 94760; 95813; 95816; A4615; A4618; A6213; A6250; A6258; A6402; A6449; A7000; C1758; C1887; G0378; J0131; J0282; J0360; J0690; J1100; J1171; J1644; J1956; J2003; J2175; J2250; J2371; J2405; J2704; J2765; J3010; J3475; J3480; J3490; J7030; J7040; J7050; J7060; J7120